=== PATIENT | male | born 1990 | race Caucasian/White ===

== ENCOUNTER 2020-08-31 09:30 | Emergency (ER) | payer OTHER, SELFPAY ==
--- NOTE | ~2020-08-31 | XR_ITS ---
EXAMINATION: XR hip RT min 3V w AP pelvis DATE: 08/31/2020 11:07 INDICATION: Right hip pain. Fall. TECHNIQUE: An anteroposterior view of the pelvis and 3 views of right hip were obtained. COMPARISON: None. FINDINGS: Bone alignment is normal. No fracture. Joint spaces are well maintained. There is a subcuta neous mass lateral to the right greater trochanter. IMPRESSION: 1. No fracture. 2. Subcutaneous mass lateral to the right greater trochanter, likely a hematoma. Reviewed, dictated and finalized at location A. IMPRESSION: 1. No fracture. 2. Subcutaneous mass lateral to the right greater trochanter, likely a hematoma .
[2020-08-31 09:50] VITALS: BP 147/90; PULSE 84; RESP 18; TEMP 36.5; O2SAT 100
--- NOTE | 2020-08-31 10:31 | ED.LOWEXIN ---
HPI - Extremity Injury (Lower) General Chief Complaint: Extremity Injury, Lower Stated Complaint: right hip injury Time Seen by Provider: 08/31/20 09:54 Source: patient Mode of arrival: ambulatory Limitations: no limitations History of Present Illness HPI Narrative: This is a 30-year-old male that presents the emergency department for right hip pain after a fall last night. Reports he was playing hockey and fell onto his right hip. Reports when he woke up this morning he noted swelling to the lateral aspect of the hip. Reports pain to the area. He is able to walk, but with pain. Denies hitting his head, loss of consciousness, decreased range of motion, or numbness. Related Data Allergies Allergy/AdvReac Type Severity Reaction Status Date / Time No Known Allergies Allergy Verified 08/31/20 09:58 Review of Systems Review of Systems: Narrative: CONSTITUTIONAL: Denies fever MUSCULOSKELETAL: Reports joint pain, and myalgia. NEUROLOGIC: Denies numbness All systems reviewed & are unremarkable except as noted in HPI and below PMFSH Social History Social History (Updated 08/31/20 @ 10:33 by Roxanne Delgado PA-C) Smoking status: Never smoker Substance use: never Gender identity (if verbalized by the patient): Male Exam Narrative: Exam Narrative: GENERAL: Well-appearing, well-nourished, and in no acute distress. HEAD: Normocephalic, atraumatic. EYES: EOMI. CHEST: Clear to auscultation. No respiratory distress. No wheezes rales or rhonchi HEART: Regular rate and rhythm. No murmur heard. Normal peripheral pulses. BACK: No midline spinal tenderness EXTREMITIES: Normal range of motion. Right lateral hip with moderate size swelling, likely hematoma. Otherwise compartments are soft. Tender to palpation in the area of swelling. Strength equal in bilateral lower extremities (5/5). Normal DP pulses. Normal sensation SKIN: Warm, dry, no rash. NEURO: No focal deficits. Alert and oriented x3. PSYCH: Normal mood and affect Course Consultations Consultation #1: Spoke with Dr. Burrows about patient and workup, patient may follow up in clinic for any further problems. Date: 08/31/20 Time: 12:29 Vital Signs Vital signs: Vital Signs Temperature 97.7 F 08/31/20 09:50 Pulse Rate 84 08/31/20 09:50 Respiratory Rate 18 08/31/20 09:50 Blood Pressure 147/90 H 08/31/20 09:50 Pulse Oximetry 100 08/31/20 09:50 Temperature 97.7 F 08/31/20 09:50 Pulse Rate 77 08/31/20 11:56 Respiratory Rate 16 08/31/20 11:56 Blood Pressure 144/89 H 08/31/20 11:56 Pulse Oximetry 100 08/31/20 11:56 MDM - Extremity Injury (Lower) MDM Narrative Medical decision making narrative: Patient presents to the ER for right hip pain after an injury last night. Moderate size hematoma to the right lateral hip. Otherwise compartments are soft. Normal peripheral pulses and sensation. Right hip x-ray shows no fracture. Does show subcutaneous mass lateral to the right greater trochanter likely hematoma. Patient updated on case findings. Spoke with Dr. Burrows about patient and workup, patient may follow up in clinic for any further problems. He is stable and felt appropriate for further outpatient evaluation he was given warnings to return to the ER Imaging Data Radiologist's impression: ITS Impressions Hip/Pelvis X-Ray 08/31/20 11:12 IMPRESSION: 1. No fracture. 2. Subcutaneous mass lateral to the right greater trochanter, likely a hematoma. Critical Care Time Critical Care Time Critical Care Time: No Discharge Plan Discharge Clinical Impression: Hematoma of right hip Qualifiers: Encounter type: initial encounter Qualified Code(s): S70.01XA - Contusion of right hip, initial encounter Patient Disposition: Home, Self-Care Condition: Stable Instructions: Hematoma (ED) Additional Instructions: Return to the emergency department if you experience fever, redness and swelling of your leg, numb
[2020-08-31 11:56] VITALS: BP 144/89; PULSE 77; RESP 16; O2SAT 100
== END 2020-08-31 12:58 | disposition home or self-care (01) ==
PROVIDERS: Emergency Provider Emergency Medicine; PCP Family Medicine
DX: S70.01XA Contusion of right hip, initial encounter (principal); W01.0XXA Fall on same level from slipping, tripping and stumbling without subsequent striking against object, initial encounter
CPT/HCPCS: 73502; 99283